=== PATIENT | male | born 1985 | race Caucasian/White ===

== ENCOUNTER 2017-12-18 10:14 | Emergency (ER) | payer OTHER ==
[~2017-12-18] VITALS: Ht 188 cm; Wt 88.6 kg
[2017-12-18] MEDS ORDERED: IV NORMAL SALINE 1,000ML 1,000 ML IV ONE (10:30)
--- NOTE | 2017-12-18 11:19 | RAD ---
CT THORACIC SPINE WO CONTRAST Indication: SEVERE BACK PAIN BETWEEN SCAPULA, NO RECENT INJURY Technique: Noncontrast CT imaging was performed of the thoracic spine, multiplanar reconstruction images submitted. One or more of the following individualized dose reduction techniques were utilized for this examination: 1. Automated exposure control 2. Adjustment of the mA and/or kV according to patient size 3. Use of iterative reconstruction technique. Contrast: None Comparison: None Findings: Thoracic vertebral body stature and AP alignment are maintained. No acute fracture is identified. There is no significant thoracic osseous spinal stenosis. Osseous thoracic neural foramina are not significantly narrowed. There is mild degenerative disc disease of visualized inferior cervical levels. IMPRESSION: 1. No acute abnormality is identified, no significant osseous thoracic spinal stenosis or neural foramina compromise. Electronically signed by: Rufino Lu MD (12/18/2017 11:16 AM) [id number]
--- NOTE | 2017-12-18 11:30 | PHYS DOC ---
Past History Past Medical History: No Pertinent History Past Surgical History: No Surgical History Alcohol Use: Occasionally Drug Use: None Adult General Chief Complaint Chief Complaint: BACK PAIN OR INJURY HPI HPI Patient is a 32 year old M who presents with dull constant mid central back pain just below his shoulder blades that started this morning when he woke up. He denies recent injury. He does note a previous injury about 5yrs ago but does not know of any activities recently that may have exacerbated this injury. He has no associated symptoms. His pain is positional. He feels that a slightly hunched back improves his pain while straightening his back worsens his pain. He has no bowel or bladder abnormalities. Review of Systems Review of Systems Constitutional: Denies fever or chills [] Eyes: Denies change in visual acuity, redness, or eye pain [] HENT: Denies nasal congestion or sore throat [] Respiratory: Denies cough or shortness of breath [] Cardiovascular: No additional information not addressed in HPI [] GI: Denies abdominal pain, nausea, vomiting, bloody stools or diarrhea [] : Denies dysuria or hematuria [] Musculoskeletal: Denies joint pain [] Integument: Denies rash or skin lesions [] Neurologic: Denies headache, focal weakness or sensory changes [] Endocrine: Denies polyuria or polydipsia [] All other systems were reviewed and found to be within normal limits, except as documented in this note. Family History Family History No pertinent family medical history was reported Current Medications Current Medications Current medications reviewed Current Medications Medications (Trade) Dose Ordered Sig/Mary Start Time Stop Time Status Last Admin Dose Admin Sodium Chloride 1,000 ml @ 1,000 mls/hr 1X ONCE 12/18/17 10:30 12/18/17 10:58 DE Allergies Allergies Allergies Coded Allergies Type Severity Reaction Last Updated Verified No Known Drug Allergies 12/18/17 No Physical Exam Physical Exam Constitutional: Well developed, well nourished, no acute distress, non-toxic appearance. [] HENT: Normocephalic, atraumatic Eyes: PERRLA, EOMI, conjunctiva normal, no discharge. [] Neck: Normal range of motion, no tenderness, supple, no stridor. [] Cardiovascular:Heart rate regular rhythm, Lungs & Thorax: Bilateral breath sounds clear to auscultation [] Abdomen: Bowel sounds normal, soft, no tenderness, no masses, no pulsatile masses. [] Skin: Warm, dry, no erythema, no rash. [] Back: No tenderness, no CVA tenderness. [] Although nontender on palpation his pain was found to be in the mid thoracic spine just below the level of scapula bilaterally Extremities: No tenderness, no cyanosis, no clubbing, ROM intact, no edema. [] Neurologic: Alert and oriented X 3, normal motor function, normal sensory function, no focal deficits noted. [] Psychologic: Affect normal, judgement normal, mood normal. [] Current Patient Data Vital Signs Vital Signs Date Time Temp Pulse Resp B/P (MAP) Pulse Ox O2 Delivery O2 Flow Rate FiO2 12/18/17 10:34 98.2 80 18 97 Room Air EKG EKG [] Radiology/Procedures Radiology/Procedures CT thoracic spine without contrast Impressions: Findings: Thoracic vertebral body stature and AP alignment are maintained. No acute fracture is identified. There is no significant thoracic osseous spinal stenosis. Osseous thoracic neural foramina are not significantly narrowed. There is mild degenerative disc disease of visualized inferior cervical levels. IMPRESSION: 1. No acute abnormality is identified, no significant osseous thoracic spinal stenosis or neural foramina compromise. Course & Med Decision Making Course & Med Decision Making Pertinent Labs and Imaging studies reviewed. (See chart for details) [] Dragon Disclaimer Dragon Disclaimer This electronic medical record was generated, in whole or in part, using a voice recognition dictation system. Departure Departure: Impression: Primary Impression: Back pain Disposition: 01 HOME, SELF-CARE Condition: STABLE Referrals: PCP,NO (PCP) Patient Instructions: Back Pain, Adult Additional Instructions: Ernesto was seen in the emergency department for back pain. No emergency medical condition was found on history or physical exam. He did have normal imaging of his back. He is encouraged to follow-up with his primary care doctor for further evaluation and management. Problem Qualifiers Primary Impression: Back pain Back pain location: thoracic back pain Chronicity: unspecified Back pain laterality: bilateral Qualified Codes: M54.6 - Pain in thoracic spine IAN BLACKWELL MD Dec 18, 2017 11:30
[2017-12-18 11:38] VITALS: BP 150/99
== END 2017-12-18 11:39 | disposition home or self-care (01) ==
LOC: ER 10:14
DX: M54.6 Pain in thoracic spine (principal)
CPT/HCPCS: 72128; 99284-25